=== PATIENT | female | born 1990 | race Caucasian/White ===

== ENCOUNTER 2020-12-07 12:34 | Emergency (ER) | payer MEDICAID, SELFPAY ==
[~2020-12-07] VITALS: Ht 162.6 cm; Wt 108.9 kg
[2020-12-07 13:06] VITALS: BP_SYST 150
--- NOTE | 2020-12-07 13:10 | NUR ---
Patient to ER bed 1 to gown for evaluation. Side rails up. Report given to Fabiola REMY.
--- NOTE | 2020-12-07 13:16 | NUR ---
RECEIVED AND IN ROOM, CALM, ALERT, RESP UNLABORED,
--- NOTE | 2020-12-07 14:38 | NUR ---
DR BYRNE IN TO ASSESS
--- NOTE | 2020-12-07 14:45 | NUR ---
Patient has a 1cm laceration to Left hand. Dr. Vasques applied sutures using sterile technique. Edges well approximated. Site cleansed with NS and betadine. Dressing of non-stick gauze and guaze wrap applied to site. No bleeding noted. Pt tolerated well.
[2020-12-07] MEDS ORDERED: BACI15OI13 TP (14:49)
[2020-12-07] MEDS ORDERED: BACITRACIN 1 GM OINT TP ONE (14:54)
[2020-12-07 15:00] VITALS: BP_SYST 141
--- NOTE | 2020-12-07 15:00 | NUR ---
Patient given written and verbal discharge instructions and verbalizes understanding. ER MD discussed with patient the results and treatment provided. Patient in stable condition. ID arm band removed. Rx of Bacitracin given. Patient educated on pain management and to follow up with PMD. Pain Scale 0. Opportunity for questions provided and answered. Medication side effect fact sheet provided.
[2020-12-07] MEDS: DIPH-TET-PERTUS Vaccine 0.5 ML VIAL (ADACEL) I.M. ONE (15:04)
[2020-12-07] MEDS: LIDOCAINE/EPI 1% 1:100000 20 ML VIAL INJ ONE (15:05)
== END 2020-12-07 15:00 | disposition home or self-care (01) ==
LOC: SED 12:34
DX: S61.412A Laceration without foreign body of left hand, initial encounter (principal); W01.198A Fall on same level from slipping, tripping and stumbling with subsequent striking against other object, initial encounter; Y93.89 Activity, other specified; Y92.89 Other specified places as the place of occurrence of the external cause; Y99.8 Other external cause status
CPT/HCPCS: 90715; 99283

== ENCOUNTER 2020-12-12 08:08 | Emergency (ER) | payer MEDICAID ==
[~2020-12-12] VITALS: Ht 165.1 cm; Wt 113.4 kg
[~2020-12-12 08:08] MED LIST: BACI15OI13 TP
[2020-12-12 08:10] VITALS: BP_SYST 119
== END 2020-12-12 08:26 | disposition home or self-care (01) ==
LOC: SED 08:08
DX: S61.412D Laceration without foreign body of left hand, subsequent encounter (principal); W45.8XXD Other foreign body or object entering through skin, subsequent encounter
CPT/HCPCS: 99281

== ENCOUNTER 2020-12-20 08:12 | Emergency (ER) | payer MEDICAID ==
[~2020-12-20] VITALS: Ht 162.6 cm; Wt 113.4 kg
[2020-12-20 08:12] VITALS: BP_SYST 118
[2020-12-20] MEDS ORDERED: BUPRENORPHINE HCL/NALOXONE HCL 2-0.5 MG 1 EACH TAB.SUBL SL ONE (08:30)
[2020-12-20] MEDS ORDERED: cloNIDine HCL 0.1 MG TABLET PO ONE (08:30)
[2020-12-20 09:08] VITALS: BP_SYST 127
== END 2020-12-20 09:09 | disposition home or self-care (01) ==
LOC: SED 08:12
DX: S61.432D Puncture wound without foreign body of left hand, subsequent encounter (principal); Z48.02 Encounter for removal of sutures; W01.198D Fall on same level from slipping, tripping and stumbling with subsequent striking against other object, subsequent encounter
CPT/HCPCS: 99281